=== PATIENT | female | born 1935 | race Caucasian/White ===

== ENCOUNTER 2016-08-30 01:53 | Emergency (ER) | payer OTHER, MEDICAID ==
[~2016-08-30 01:53] MED LIST: ALPRAZOLAM1 MG PO; ASPIR 8181 MG PO; DURAGESIC75 MCG/HR TD; ERY TABS333 MG PO; HYDROCODONE BIT1 T12 PO; LIDODERM51 TD; MACROBID100 MG PO; METHOCARBAMOL500 MG PO; MORPHINE SULFAT15 M7 PO; NITROSTAT0.4 MG; SIMVASTATIN20 M1 PO; ZESTRIL5 MG PO
[2016-08-30 03:05] VITALS: BP 170/86
== END 2016-08-30 03:05 | disposition home or self-care (01) ==
LOC: ED 01:53
DX: M25.562 Pain in left knee (principal); M25.561 Pain in right knee; M19.90 Unspecified osteoarthritis, unspecified site; Z88.0 Allergy status to penicillin; Z88.8 Allergy status to other drugs, medicaments and biological substances; Z91.013 Allergy to seafood
CPT/HCPCS: J1885; J2270; Q0092; Q0162

== ENCOUNTER 2018-01-18 20:06 | Emergency (ER) | payer OTHER, MEDICAID ==
[~2018-01-18] VITALS: Ht 172.7 cm; Wt 81.6 kg
[2018-01-18 20:09] VITALS: Ht 172.7 cm; Wt 81.6 kg
[2018-01-18 22:42] VITALS: BP 151/79
== END 2018-01-18 22:42 | disposition home or self-care (01) ==
LOC: ED 20:06
DX: G89.29 Other chronic pain (principal); M25.562 Pain in left knee; M25.561 Pain in right knee; M19.90 Unspecified osteoarthritis, unspecified site; F41.9 Anxiety disorder, unspecified; Z91.013 Allergy to seafood; Z88.1 Allergy status to other antibiotic agents; Z88.0 Allergy status to penicillin; Z88.8 Allergy status to other drugs, medicaments and biological substances
CPT/HCPCS: J3010; J3490